=== PATIENT | male | born 1950 | race Caucasian/White ===

== ENCOUNTER → 2017-03-04 | Outpatient (CLI) | payer SELFPAY | END | disposition home or self-care (01) | LOC: LABWHC1 15:21 | PROVIDERS: ATTEND Preventive Medicine Occupational Medicine | DX: J67.9 Hypersensitivity pneumonitis due to unspecified organic dust (principal) | CPT/HCPCS: 36415 ==

== ENCOUNTER 2018-11-07 09:25 | Day surgery (SDC) | payer OTHER ==
[2018-11-07 10:13] VITALS: RESP 16; TEMP 97.1
[2018-11-07] MEDS ORDERED: LACTATED RINGERS 1,000 ML IV ONE (10:26)
[2018-11-07] MEDS ORDERED: LIDOCAINE 1% 20 ML VIAL (10MG/ML) FOR IV START INTRADERMA ONE (10:26)
[2018-11-07 10:29] LABS: Glucose,Whole Blood 106 mg/dL (75-99)
[2018-11-07] MEDS ORDERED: PROPOFOL 10 MG/ML 20 ML VIAL IV ONE (11:26)
--- NOTE | 2018-11-07 11:55 | P.PCN ---
Date of Procedure: 11/07/18 Procedure(s) Performed: Procedure: Total colonoscopy. Preoperative diagnosis: Screening for neoplasia. Postoperative diagnosis: Exam within normal limits. Preparation: HalfLytely prep. Sedation: Was provided by anesthesia. Brief clinical history: The patient is a 68-year-old male who is scheduled for this evaluation for screening for neoplasia age being his risk factor. His prior exam was around 12 years ago. The patient has no abdominal complaints, bleeding or anemia. Procedure: With the patient on his left lateral decubitus position and after informed consent and adequate sedation, the perianal area was inspected and it did not show any fissures or fistulas. There were no masses felt on digital rectal examination. The Olympus CFH 190L video colonoscope was then inserted in the rectum in the usual fashion and advanced to the cecum. The mucosa appeared healthy. No polyps or tumors were seen or any obvious diverticular disease or other pathology. I retroflexed the endoscope in the rectum before the endoscope was withdrawn. The patient tolerated the procedure well. Plan: The patient was reassured. He will follow up with you as planned and I recommended repeat exam in 10 years.
[2018-11-07 12:15] VITALS: BP 137/80; PULSE 66
== END 2018-11-07 12:36 | disposition home or self-care (01) ==
LOC: ORWHC2ENDO 09:25
DX: Z12.11 Encounter for screening for malignant neoplasm of colon (principal); E11.9 Type 2 diabetes mellitus without complications; K21.9 Gastro-esophageal reflux disease without esophagitis; I10 Essential (primary) hypertension; E78.5 Hyperlipidemia, unspecified; Z87.891 Personal history of nicotine dependence; Z79.84 Long term (current) use of oral hypoglycemic drugs; Z79.1 Long term (current) use of non-steroidal anti-inflammatories (NSAID); Z79.82 Long term (current) use of aspirin; Z79.899 Other long term (current) drug therapy
CPT/HCPCS: J2704; G0121; 45378

== ENCOUNTER 2018-12-02 09:06 | Emergency (ER) | payer MEDICARE, OTHER ==
[2018-12-02 09:11] VITALS: BP 159/77; PULSE 79; RESP 16; TEMP 98.3
--- NOTE | 2018-12-02 10:03 | ED ---
General Adult HPI - General Chief complaint: Back Pain/Injury Stated complaint: sciatic nerve Time Seen by Provider: 12/02/18 09:18 Source: patient Mode of arrival: ambulatory Limitations: no limitations - History of Present Illness Initial comments: Dictation was produced using [employer] dictation software. please excuse any grammatical, word or spelling errors. Chief Complaint: 68-year-old male presents with lower back pain. History of Present Illness: Patient is 68-year-old male. He presents today with subacute back pain. Patient states he was shoveling snow when he began having symptoms. Reports that this incident was approximately 3 weeks ago. Since then he's been seeing a chiropractor. He states that his symptoms have been stable however have not been improving. Reports today with his significant other for further care. Patient states that he came today because he is sick of his symptoms being persistent without much improvement. Patient is ambulatory. Patient does state however that his symptoms do keep him up at night on certain occasions. Patient also complains of some mild paresthesias to his right lower extremity. He has any fever, chills or night sweats. No incontinence to urine or stool. No urinary retention. The ROS documented in this emergency department record has been reviewed and confirmed by me. Those systems with pertinent positive or negative responses have been documented in the HPI. All other systems are other negative and/or noncontributory. PHYSICAL EXAM: General Impression: Alert and oriented x3, not in acute distress HEENT: Normocephalic atraumatic, extra-ocular movements intact, pupils equal and reactive to light bilaterally, mucous membranes moist. Cardiovascular: Heart regular rate and rhythm, S1&S2 audible, no murmurs, rubs or gallops Chest: Lungs clear to auscultation bilaterally, no rhonchi, no wheeze, no rales Abdomen: Bowel sounds present, abdomen soft, non-tender, non-distended, no organomegaly Musculoskeletal: Pulses present and equal in all extremities, no peripheral edema Motor: no focal deficits noted Neurological: CN II-XII grossly intact, no focal motor or sensory deficits noted Skin: Intact with no visualized rashes Psych: Normal affect and mood ED course: 68-year-old male presents with subacute back pain. Setting event was 3 weeks ago while he was shoveling snow. Vital signs upon arrival are within acceptable limits. Patient does have some mild paresthesias to the right anterior davis. Clinical presentation is consistent with sciatica. No red flag symptoms noted on HPI or physical examination. Patient is ambulatory without complications. Patient is in no acute distress. Patient to be discharged with Medrol Dosepak, pain medications and referral to outpatient spine surgeon. - Related Data Home Medications Medication Instructions Recorded Confirmed Aspirin 81 mg PO DAILY 11/07/18 12/02/18 C,E,Zinc,Copper 11/Ivufi3u/Lut 1 cap PO DAILY 11/07/18 12/02/18 [Ocuvite Adult 50 Plus Softgel] Lisinopril-Hctz 20-25 mg 1 tablet PO DAILY 11/07/18 12/02/18 [Zestoretic 20-25] Meloxicam [Mobic] 7.5 mg PO DAILY 11/07/18 12/02/18 Pantoprazole [Protonix] 40 mg PO DAILY 11/07/18 12/02/18 Simvastatin 40 mg PO DAILY 11/07/18 12/02/18 metFORMIN HCL [Glucophage] 500 mg PO DAILY 11/07/18 12/02/18 Previous Rx's Medication Instructions Recorded HYDROcodone/APAP 5-325MG [Keene 1 tab PO Q6HR PRN 3 Days #12 tab 12/02/18 5-325] methylPREDNISolone [Medrol Dose 4 mg PO DIRECTED #1 pack 12/02/18 Pack] Allergies Allergy/AdvReac Type Severity Reaction Status Date / Time No Known Drug Allergies Allergy Unknown Verified 12/02/18 09:49 Review of Systems ROS Statement: Those systems with pertinent positive or pertinent negative responses have been documented in the HPI. ROS Other: All systems not noted in ROS Statement are negative. Past Medical History Past Medical History: Diabetes Mellitus, GERD/Reflux, Hyperlipidemia, Hypertension History of Any Multi-Drug Resistant Organisms: None Reported Past Surgical History: Prostate Surgery, Tonsillectomy Past Anesthesia/Blood Transfusion Reactions: No Reported Reaction Past Psychological History: No Psychological Hx Reported Smoking Status: Former smoker Past Alcohol Use History: None Reported Past Drug Use History: None Reported General Exam Limitations: no limitations Course Vital Signs 12/02/18 09:08 Temperature 98.3 F Pulse Rate 79 Respiratory 16 Rate Blood Pressure 159/77 O2 Sat by Pulse 97 Oximetry Disposition Clinical Impression: Back pain Disposition: HOME SELF-CARE Condition: Good Instructions (If sedation given, give patient instructions): Chronic Back Pain (ED), Acute Low Back Pain (ED) Prescriptions: methylPREDNISolone [Medrol Dose Pack] 4 mg PO DIRECTED #1 pack HYDROcodone/APAP 5-325MG [Keene 5-325] 1 tab PO Q6HR PRN 3 Days #12 tab PRN Reason: Severe Pain Is patient prescribed a controlled substance at d/c from ED?: Yes If prescribed controlled substance>3 days was MAPS reviewed?: Prescribed <3 Days Referrals: Michael Gardner DO [Doctor of Osteopathic Medicine] - 1-2 days [facility],Clinic [Primary Care Provider] - 1-2 days Time of Disposition: 10:03
== END 2018-12-02 10:05 | disposition home or self-care (01) ==
LOC: EC 09:06
DX: M54.5 Low back pain (principal); R20.2 Paresthesia of skin; E11.9 Type 2 diabetes mellitus without complications; K21.9 Gastro-esophageal reflux disease without esophagitis; E78.5 Hyperlipidemia, unspecified; I10 Essential (primary) hypertension; Z87.891 Personal history of nicotine dependence; Z79.82 Long term (current) use of aspirin; Z79.1 Long term (current) use of non-steroidal anti-inflammatories (NSAID); Z79.84 Long term (current) use of oral hypoglycemic drugs; Z79.899 Other long term (current) drug therapy
CPT/HCPCS: 99283

== ENCOUNTER 2021-08-23 13:36 | Emergency (ER) | payer MEDICARE ==
[2021-08-23 13:51] VITALS: RESP 18; TEMP 98.6
[2021-08-23] MEDS ORDERED: SODIUM CHLORIDE 0.9% 1,000 ML IV ONE (16:10)
--- NOTE | 2021-08-23 16:10 | ED ---
Weakness HPI - General Chief complaint: Weakness Stated complaint: Covid+, poss pneumonia Time Seen by Provider: 08/23/21 15:58 Source: patient Mode of arrival: ambulatory - History of Present Illness Initial comments: René is a pleasant 71yo M who presents to the ER today via private vehicle for evaluation of possible dehydration. Patient tested positive for COVID on 08/13. He reports minimal respiratory symptoms but states that he has had decreased PO intake, nausea and vomiting. He is concerned he may be dehydrated and was advised by his PCP to come to the ER for evaluation. - Related Data Home Medications Medication Instructions Recorded Confirmed C,E,Zinc,Copper 11/Fvppg2n/Lut 1 cap PO DAILY 11/07/18 08/23/21 [Ocuvite Adult 50 Plus Softgel] Lisinopril-Hctz 20-25 mg 1 tab PO DAILY 11/07/18 08/23/21 [Zestoretic 20-25] Meloxicam [Mobic] 7.5 mg PO DAILY 11/07/18 08/23/21 Pantoprazole [Protonix] 40 mg PO DAILY 11/07/18 08/23/21 Simvastatin 40 mg PO DAILY 11/07/18 08/23/21 metFORMIN HCL [Glucophage] 500 mg PO DAILY 11/07/18 08/23/21 Aspirin EC [Ecotrin Low Dose] 81 mg PO DAILY 08/23/21 08/23/21 Benzonatate [Benzonatate Perle] 200 mg PO TID PRN 08/23/21 08/23/21 Carboxymethylcellulose Sodium 1 drop BOTH EYES TID 08/23/21 08/23/21 [Refresh Tears] Previous Rx's Medication Instructions Recorded Ondansetron [Zofran ODT] 4 mg PO Q8HR #12 tab 08/23/21 Allergies Allergy/AdvReac Type Severity Reaction Status Date / Time No Known Drug Allergies Allergy Unknown Verified 08/23/21 17:10 Review of Systems ROS Statement: Those systems with pertinent positive or pertinent negative responses have been documented in the HPI. ROS Other: All systems not noted in ROS Statement are negative. Past Medical History Past Medical History: Diabetes Mellitus, GERD/Reflux, Hyperlipidemia, Hypertension History of Any Multi-Drug Resistant Organisms: None Reported Past Surgical History: Prostate Surgery, Tonsillectomy Past Anesthesia/Blood Transfusion Reactions: No Reported Reaction Past Psychological History: No Psychological Hx Reported Smoking Status: Former smoker Past Alcohol Use History: None Reported Past Drug Use History: None Reported General Exam - General Exam Comments Initial Comments: Physical Exam GENERAL: Patient is well-developed and well-nourished. Patient is nontoxic and well-hydrated and is in no distress. HENT: Normocephalic, Atraumatic. EYES: PERRL, EOMI PULMONARY: Unlabored respirations. CARDIOVASCULAR: RRR Warm and well perfused extremities ABDOMEN: Non-distended SKIN: No rashes or bruising : Deferred NEUROLOGIC: Alert and oriented Normal speech Normal gait MUSCULOSKELETAL: Moving all extremities with no apparent injury PSYCHIATRIC: No SI/HI Course Vital Signs 08/23/21 13:46 Temperature 98.6 F Pulse Rate 81 Respiratory 18 Rate Blood Pressure 128/75 O2 Sat by Pulse 93 L Oximetry Medical Decision Making - Medical Decision Making Patient was seen and evaluated, history is obtained from the patient, pleasant 71-year-old gentleman with COVID-19 nausea vomiting decreased oral intake. On exam the patient's very well-appearing he is afebrile, heart rate is not elevated, oxygen is 93% on room air. He has no complaints of shortness of breath. Labs are unremarkable patient received IV fluids. Patient will be dis charged home with [employer]. - Lab Data Result diagrams: 08/23/21 17:25 08/23/21 17:25 Lab Results 08/23/21 08/23/21 Range/Units 17:25 17:25 WBC 6.6 (3.8-10.6) k/uL RBC 4.36 (4.30-5.90) m/uL Hgb 13.5 (13.0-17.5) gm/dL Hct 40.2 (39.0-53.0) % MCV 92.1 (80.0-100.0) fL MCH 30.9 (25.0-35.0) pg MCHC 33.5 (31.0-37.0) g/dL RDW 12.3 (11.5-15.5) % Plt Count 232 (150-450) k/uL MPV 9.5 Neutrophils % 82 % Lymphocytes % 9 % Monocytes % 7 % Eosinophils % 0 % Basophils % 0 % Neutrophils # 5.4 (1.3-7.7) k/uL Lymphocytes # 0.6 L (1.0-4.8) k/uL Monocytes # 0.5 (0-1.0) k/uL Eosinophils # 0.0 (0-0.7) k/uL Basophils # 0.0 (0-0.2) k/uL Sodium 137 (137-145) mmol/L Potassium 4.1 (3.5-5.1) mmol/L Chloride 99 (98-107) mmol/L Carbon Dioxide 30 (22-30) mmol/L Anion Gap 8 mmol/L BUN 41 H (9-20) mg/dL Creatinine 1.12 (0.66-1.25) mg/dL Est GFR (CKD-EPI)AfAm 77 (>60 ml/min/1.73 sqM) Est GFR (CKD-EPI)NonAf 66 (>60 ml/min/1.73 sqM) Glucose 145 H (74-99) mg/dL Calcium 8.9 (8.4-10.2) mg/dL Magnesium 1.9 (1.6-2.3) mg/dL Total Bilirubin 0.8 (0.2-1.3) mg/dL AST 46 (17-59) U/L ALT 45 (4-49) U/L Alkaline Phosphatase 100 (38-126) U/L Total Protein 6.7 (6.3-8.2) g/dL Albumin 3.6 (3.5-5.0) g/dL Disposition Clinical Impression: COVID-19 Disposition: HOME SELF-CARE Condition: Stable Is patient prescribed a controlled substance at d/c from ED?: No Referrals: [facility],Clinic [Primary Care Provider] - 1-2 days
--- NOTE | 2021-08-23 16:48 | XR ---
EXAMINATION TYPE: XR chest 1V DATE OF EXAM: 08/23/2021 COMPARISON: NONE HISTORY: Weakness TECHNIQUE: Single view FINDINGS: There is some mild interstitial infiltrate in the lower lung [place]. Heart size is normal. There is no heart failure. Bony thorax is intact IMPRESSION: There is some interstitial pneumonia.
[2021-08-23 17:47] LABS: Basophils % (A) 0 %; Eosinophils % (A) 0 %; HCT 40.2 % (39.0-53.0); HGB 13.5 gm/dL (13.0-17.5); Lymphocytes # (A) 0.6 k/uL (1.0-4.8); Lymphocytes % (A) 9 %; MCH 30.9 pg (25.0-35.0); MCHC 33.5 g/dL (31.0-37.0); MCV 92.1 fL (80.0-100.0); Mean Platelet Volume 9.5; Monocytes # (A) 0.5 k/uL (0-1.0); Monocytes % (A) 7 %; Neutrophils # (A) 5.4 k/uL (1.3-7.7); Neutrophils % (A) 82 %; Platelet Count 232 k/uL (150-450); RBC 4.36 m/uL (4.30-5.90); RDW 12.3 % (11.5-15.5); WBC 6.6 k/uL (3.8-10.6)
[2021-08-23 17:48] LABS: Albumin 3.6 g/dL (3.5-5.0); Calcium 8.9 mg/dL (8.4-10.2); Magnesium 1.9 mg/dL (1.6-2.3); Potassium 4.1 mmol/L (3.5-5.1); Total Bilirubin 0.8 mg/dL (0.2-1.3); Total Protein 6.7 g/dL (6.3-8.2)
[2021-08-23 19:12] VITALS: BP 132/72; PULSE 84
== END 2021-08-23 19:11 | disposition home or self-care (01) ==
LOC: EC 13:36
DX: U07.1 COVID-19 (principal); E11.9 Type 2 diabetes mellitus without complications; I10 Essential (primary) hypertension; E78.5 Hyperlipidemia, unspecified; K21.9 Gastro-esophageal reflux disease without esophagitis; Z87.891 Personal history of nicotine dependence; Z79.82 Long term (current) use of aspirin; Z79.84 Long term (current) use of oral hypoglycemic drugs; Z79.1 Long term (current) use of non-steroidal anti-inflammatories (NSAID); Z79.899 Other long term (current) drug therapy
CPT/HCPCS: 36415; 71045; 80053; 83735; 85025; 99284

== ENCOUNTER 2022-04-25 21:40 | Emergency (ER) | payer MEDICARE ==
--- NOTE | 2022-04-25 22:29 | ED ---
Extremity Problem HPI - General Chief complaint: Extremity Problem,Nontraumatic Stated complaint: R arm sore Time Seen by Provider: 04/25/22 21:52 Source: patient, family, RN notes reviewed Mode of arrival: ambulatory Limitations: no limitations - History of Present Illness Initial comments: Patient is a 72-year-old male presents to the emergency room with complaint of redness at the site of a pneumonia shot earlier in the week that has slowly moved down into the lateral aspect of his arm with some mild swelling mild erythema near and warmth. The area is not indurated and warm rather than hot. No purulent drainage from injection site. He denies any fevers, chills, chest pain, shortness of breath, range of motion impairment, limb numbness or tingling. - Related Data Home Medications Medication Instructions Recorded Confirmed C,E,Zinc,Copper 11/Foggu2v/Lut 1 cap PO DAILY 11/07/18 08/23/21 [Ocuvite Adult 50 Plus Softgel] Lisinopril-Hctz 20-25 mg 1 tab PO DAILY 11/07/18 08/23/21 [Zestoretic 20-25] Meloxicam [Mobic] 7.5 mg PO DAILY 11/07/18 08/23/21 Pantoprazole [Protonix] 40 mg PO DAILY 11/07/18 08/23/21 Simvastatin 40 mg PO DAILY 11/07/18 08/23/21 metFORMIN HCL [Glucophage] 500 mg PO DAILY 11/07/18 08/23/21 Aspirin EC [Ecotrin Low Dose] 81 mg PO DAILY 08/23/21 08/23/21 Benzonatate [Benzonatate Perle] 200 mg PO TID PRN 08/23/21 08/23/21 Carboxymethylcellulose Sodium 1 drop BOTH EYES TID 08/23/21 08/23/21 [Refresh Tears] Previous Rx's Medication Instructions Recorded Ondansetron [Zofran ODT] 4 mg PO Q8HR #12 tab 08/23/21 methylPREDNISolone Dose Pack 4 mg PO DIRECTED #21 tab 04/25/22 [Medrol Dose Pack] Allergies Allergy/AdvReac Type Severity Reaction Status Date / Time No Known Drug Allergies Allergy Unknown Verified 04/25/22 21:43 Review of Systems ROS Statement: Those systems with pertinent positive or pertinent negative responses have been documented in the HPI. ROS Other: All systems not noted in ROS Statement are negative. Past Medical History Past Medical History: Diabetes Mellitus, GERD/Reflux, Hyperlipidemia, Hypertension History of Any Multi-Drug Resistant Organisms: None Reported Past Surgical History: Prostate Surgery, Tonsillectomy Past Anesthesia/Blood Transfusion Reactions: No Reported Reaction Past Psychological History: No Psychological Hx Reported Smoking Status: Former smoker Past Alcohol Use History: None Reported Past Drug Use History: None Reported General Exam Limitations: no limitations General appearance: alert, in no apparent distress Head exam: Present: atraumatic, normocephalic, normal inspection Eye exam: Present: normal appearance, PERRL, EOMI. Absent: scleral icterus, conjunctival injection, periorbital swelling ENT exam: Present: normal exam, mucous membranes moist Neck exam: Present: normal inspection Respiratory exam: Absent: respiratory distress, accessory muscle use Right Upper Arm exam: Present: full ROM, swelling (trace), erythema (mild). Absent: tenderness, abrasion, laceration, ecchymosis, crepidus Back exam: Present: normal inspection Neurological exam: Present: alert, oriented X3, CN II-XII intact Psychiatric exam: Present: normal affect, normal mood Skin exam: Present: dry, intact Course Vital Signs 04/25/22 21:41 Temperature 97.9 F Pulse Rate 71 Respiratory 17 Rate Blood Pressure 155/82 O2 Sat by Pulse 98 Oximetry Medical Decision Making - Medical Decision Making Given mild redness distal to injection site high probability for reaction however with mild swelling localized near the brachial vessels will check ultrasound to rule out DVT. No induration. Mottled erythema with some warmth. Injection site without any drainage induration tenderness erythremia or swelling. No indication for laboratory studies at this time. Doppler negative for DVT. Case discussed in depth with Dr. Tuttle who concurs with ALLERGIC/adverse reaction to pneumonia vaccine. Will give IM Solu-Medrol placed on a Medrol Dosepak advised avoidance of further pneumonia vaccine. Return parameters to the emergency room including any shortness of breath, worsening of redness or fevers, chills, or lethargy. Disposition Clinical Impression: Adverse reaction to pneumococcal vaccine Disposition: HOME SELF-CARE Condition: Stable Instructions (If sedation given, give patient instructions): Adverse Drug Reaction (ED) Additional Instructions: Please complete course of Medrol Dosepak. Return to the emergency room if any worsening of redness, shortness of breath fevers or other adverse reaction symptoms. If itching occurs mainly utilize Benadryl or other [id number] antihistamine such as Zyrtec. Please follow-up with your primary care provider. Please return to the Emergency Department if symptoms worsen or any other concerns. Prescriptions: methylPREDNISolone Dose Pack [Medrol Dose Pack] 4 mg PO DIRECTED #21 tab Is patient prescribed a controlled substance at d/c from ED?: No Referrals: [facility],Clinic [Primary Care Provider] - 1-2 days Time of Disposition: 23:15
--- NOTE | 2022-04-25 22:49 | US ---
EXAMINATION TYPE: US venous doppler duplex UE RT DATE OF EXAM: 04/25/2022 COMPARISON: NONE CLINICAL HISTORY: swelling redness. redness after pneumonia shot in right arm 3 days prior, no h/o dv t SIDE PERFORMED: Right Right Arm: Negative for DVT IMPRESSION: No evidence of deep vein thrombosis in the right arm.
[2022-04-25] MEDS ORDERED: methylPREDNISolone SOD SUCCI 125 MG/2 ML VIAL IM ONE (23:11)
[2022-04-25 23:22] VITALS: BP 152/71; PULSE 59; RESP 18; TEMP 97.8
== END 2022-04-25 23:24 | disposition home or self-care (01) ==
LOC: EC 21:40
DX: M79.89 Other specified soft tissue disorders (principal); M79.601 Pain in right arm; T88.1XXA Other complications following immunization, not elsewhere classified, initial encounter; E11.9 Type 2 diabetes mellitus without complications; K21.9 Gastro-esophageal reflux disease without esophagitis; E78.5 Hyperlipidemia, unspecified; Z87.891 Personal history of nicotine dependence; I10 Essential (primary) hypertension; Z79.899 Other long term (current) drug therapy; Z79.82 Long term (current) use of aspirin; Z79.84 Long term (current) use of oral hypoglycemic drugs
CPT/HCPCS: 93971; 99283; 96372; J2930

== ENCOUNTER 2024-05-23 16:33 | Emergency (ER) | payer MEDICARE ==
--- NOTE | 2024-05-23 16:54 | ED ---
Syncope HPI - General Chief Complaint: Syncope Stated Complaint: Syncope Time Seen by Provider: 05/23/24 16:35 Source: patient, EMS, RN notes reviewed, old records reviewed Mode of arrival: EMS Limitations: no limitations - History of Present Illness Initial Comments: This is a 74-year-old male to the ER for evaluation of a syncopal event patient has a significant syncopal event prior to arrival the is concerned he may have passed out twice. Patient did donate plasma today this is a weekly thing that he does. Nothing new on activity, normal activity level no current headache chest pain shortness of breath or abdominal pain. Patient feels well currently MD Complaint: loss of consciousness, almost passed out, collapsed -: days(s) Prodromal Symptoms: headache, shortness of breath, diaphoresis Description of Event: post-event confusion -: second(s) Witnessed: yes - by bystander Injuries Sustained Associated with Event: None Current Symptoms: lightheaded History: previous syncopal episode - Related Data Home Medications Medication Instructions Recorded Confirmed C,E,Zinc,Copper 11/[id number]/Lut 1 cap PO DAILY 11/07/18 08/23/21 [Ocuvite Adult 50 Plus Softgel] Lisinopril-Hctz 20-25 mg 1 tab PO DAILY 11/07/18 08/23/21 [Zestoretic 20-25] Meloxicam [Mobic] 7.5 mg PO DAILY 11/07/18 08/23/21 Pantoprazole [Protonix] 40 mg PO DAILY 11/07/18 08/23/21 Simvastatin [Zocor] 40 mg PO DAILY 11/07/18 08/23/21 metFORMIN HCL [Glucophage] 500 mg PO DAILY 11/07/18 08/23/21 Aspirin EC [Ecotrin Low Dose] 81 mg PO DAILY 08/23/21 08/23/21 Benzonatate [Benzonatate Perle] 200 mg PO TID PRN 08/23/21 08/23/21 Carboxymethylcellulose Sodium 1 drop BOTH EYES TID 08/23/21 08/23/21 [Refresh Tears] Previous Rx's Medication Instructions Recorded Ondansetron [Zofran ODT] 4 mg PO Q8HR #12 tab 08/23/21 methylPREDNISolone Dose Pack 4 mg PO DIRECTED #21 tab 04/25/22 [Medrol Dose Pack] Allergies Allergy/AdvReac Type Severity Reaction Status Date / Time No Known Drug Allergies Allergy Unknown Verified 05/23/24 16:39 Review of Systems ROS Statement: Those systems with pertinent positive or pertinent negative responses have been documented in the HPI. ROS Other: All systems not noted in ROS Statement are negative. Past Medical History Past Medical History: Diabetes Mellitus, GERD/Reflux, Hyperlipidemia, Hypertension History of Any Multi-Drug Resistant Organisms: None Reported Past Surgical History: Prostate Surgery, Tonsillectomy Past Anesthesia/Blood Transfusion Reactions: No Reported Reaction Past Psychological History: No Psychological Hx Reported Smoking Status: Former smoker Past Alcohol Use History: Occasional Past Drug Use History: None Reported General Exam Limitations: no limitations General appearance: alert, in no apparent distress, anxious, in distress Head exam: Present: atraumatic, normocephalic, normal inspection Eye exam: Present: normal appearance, PERRL, EOMI. Absent: scleral icterus, conjunctival injection, periorbital swelling ENT exam: Present: normal exam, mucous membranes moist Neck exam: Present: normal inspection. Absent: tenderness, meningismus, lymphadenopathy Respiratory exam: Present: normal lung sounds bilaterally. Absent: respiratory distress, wheezes, rales, rhonchi, stridor Cardiovascular Exam: Present: regular rate, normal rhythm, normal heart sounds. Absent: systolic murmur, diastolic murmur, rubs, gallop, clicks GI/Abdominal exam: Present: soft, normal bowel sounds. Absent: distended, tenderness, guarding, rebound, rigid Extremities exam: Present: normal inspection, full ROM, normal capillary refill. Absent: tenderness, pedal edema, joint swelling, calf tenderness Back exam: Present: normal inspection Neurological exam: Present: alert, oriented X3, CN II-XII intact Psychiatric exam: Present: normal affect, normal mood Skin exam: Present: warm, dry, intact, normal color. Absent: rash Course Vital Signs 05/23/24 05/23/24 16:35 19:45 Temperature 97.5 F L 97.0 F L Pulse Rate 62 74 Respiratory 18 17 Rate Blood Pressure 117/71 118/68 O2 Sat by Pulse 95 97 Oximetry - Reevaluation(s) Reevaluation #1: 05/23/24 18:50 Medical records reviewed Reevaluation #2: 05/23/24 18:50 Patient symptoms improved with no recurrent syncope Patient is reiterating that patient does have headaches at times Reevaluation #3: 05/23/24 18:51 Patient informed of results questions answered Reevaluation #4: Was pt. sent in by a medical professional or institution (KEN Back, COBBLER APPRENTICE, urgent care, hospital, or custodial...) When possible be specific @ -no Did you speak to anyone other than the patient for history (EMS, parent, family, police, friend...)? What history was obtained from this source @ -no Did you review nursing and triage notes (agree or disagree)? Why? @ -agree Are old charts reviewed (outside hosp., previous admission, EMS record, old EKG, old radiological studies, urgent care reports/EKG's, custodial records)? Report findings @ -yes Differential Diagnosis (chest pain, altered mental status, abdominal pain women, abdominal pain men, vaginal bleeding, weakness, fever, dyspnea, syncope, headache, dizziness, GI bleed, back pain, seizure, CVA, palpatations, mental health, musculoskeletal)? @ -prior EKG interpreted by me (3pts min.). @ -yes X-rays interpreted by me (1pt min.). @ -no CT interpreted by me (1pt min.). @ -yes negative for acute disease U/S interpreted by me (1pt. min.). @ -no What testing was considered but not performed or refused? (CT, X-rays, U/S, labs)? Why? @ -none What meds were considered but not given or refused? Why? @ -none Did you discuss the management of the patient with other professionals (professionals i.e. KEN Back, COBBLER APPRENTICE, lab, RT, psych nurse, high school social science teacher, sawsmith, teacher, chief investment officer, casework specialist)? Give summary @ -no Was smoking cessation discussed for >3mins.? @ -no Was critical care preformed (if so, how long)? @ -no Were there social determinants of health that impacted care today? How? (Homelessness, low income, unemployed, alcoholism, drug addiction, transportation, low edu. Level, literacy, decrease access to med. care, usp, rehab)? @ -none Was there de-escalation of care discussed even if they declined (Discuss DNR or withdrawal of care, Hospice)? DNR status @ -no What co-morbidities impacted this encounter? (DM, HTN, Smoking, COPD, CAD, Cancer, CVA, ARF, Chemo, Hep., AIDS, mental health diagnosis, sleep apnea, morbid obesity)? @ -none Was patient admitted / discharged? Hospital course, mention meds given and route, prescriptions, significant lab abnormalities, going to OR and other pertinent info. @ - 74-year-old male who gave plasma today presents to the ER after syncopal event thinks maybe 2 syncopal events with slow to respond to consciousness after the second event. Currently awake and alert and throughout ER stay remains awake and alert without complaint of headache chest pain shortness of breath or abdominal pain. Patient can be discharged Discharge Undiagnosed new problem with uncertain prognosis? @ -no Drug Therapy requiring intensive monitoring for toxicity (Heparin, Nitro, Insulin, Cardizem)? @ -no Were any procedures done? @ -no Diagnosis/symptom? @ -Syncope Acute, or Chronic, or Acute on Chronic? @ -Acute Uncomplicated (without systemic symptoms) or Complicated (systemic symptoms)? @ -Complicated Side effects of treatment? @ -no Exacerbation, Progression, or Severe Exacerbation? @ -exacerbation Poses a threat to life or bodily function? How? (Chest pain, [place], [place], pneumonia, PE, COPD, DKA, ARF, appy, cholecystitis, CVA, Diverticulitis, Homicidal, Suicidal, threat to staff... and all critical care pts) @ -yes extremes of age Reevaluation #5: Differential Syncope: Valvular disease, hypertrophic cardiomyopathy, pulmonary embolism, tamponade, tachycardia, bradycardia, [place], hypovolemia, hemorrhage, dissection, anemia, intracranial hemorrhage, seizure, hypoglycemia, carbon monoxide poisoning, this is not meant to be an all-inclusive list. EKG Findings - EKG Comments: EKG Findings:: EKG is sinus 61 IL 186 QRS 104 QTc 423 - EKG Results: EKG: interpreted by HEATHER Medical Decision Making - Medical Decision Making 74-year-old male who gave plasma today presents to the ER after syncopal event thinks maybe 2 syncopal events with slow to respond to consciousness after the second event. Currently awake and alert and throughout ER stay remains awake and alert without complaint of headache chest pain shortness of breath or abdominal pain. Patient can be discharged - Lab Data Result diagrams: 05/23/24 17:00 05/23/24 17:00 Lab Results 05/23/24 05/23/24 05/23/24 Range/Units 17:00 17:00 17:00 WBC 6.7 (3.8-10.6) k/uL RBC 4.15 L (4.30-5.90) m/uL Hgb 13.1 (13.0-17.5) gm/dL Hct 40.3 (39.0-53.0) % MCV 97.2 (80.0-100.0) fL MCH 31.5 (25.0-35.0) pg MCHC 32.4 (31.0-37.0) g/dL RDW 12.8 (11.5-15.5) % Plt Count 184 (150-450) k/uL MPV 9.9 Neutrophils % 73 % Lymphocytes % 17 % Monocytes % 5 % Eosinophils % 4 % Basophils % 0 % Neutrophils # 4.8 (1.3-7.7) k/uL Lymphocytes # 1.1 (1.0-4.8) k/uL Monocytes # 0.3 (0-1.0) k/uL Eosinophils # 0.2 (0-0.7) k/uL Basophils # 0.0 (0-0.2) k/uL PT 11.1 (10.0-12.5) sec INR 1.0 (<1.2) APTT 21.4 L (22.0-30.0) sec D-Dimer (<0.60) mg/L FEU Sodium 140 (137-145) mmol/L Potassium 4.1 (3.5-5.1) mmol/L Chloride 98 (98-107) mmol/L Carbon Dioxide 25 (22-30) mmol/L Anion Gap 17 mmol/L BUN 29 H (9-20) mg/dL Creatinine 1.05 (0.66-1.25) mg/dL Est GFR (CKD-EPI)AfAm 82 (>60 ml/min/1.73 sqM) Est GFR (CKD-EPI)NonAf 71 (>60 ml/min/1.73 sqM) Glucose 125 H (74-99) mg/dL Calcium 9.2 (8.4-10.2) mg/dL Magnesium (1.6-2.3) mg/dL Total Bilirubin 0.5 (0.2-1.3) mg/dL AST 21 (17-59) U/L ALT 14 (4-49) U/L Alkaline Phosphatase 81 (38-126) U/L Troponin I (0.000-0.034) ng/mL Total Protein 5.5 L (6.3-8.2) g/dL Albumin 3.6 (3.5-5.0) g/dL 05/23/24 05/23/24 05/23/24 Range/Units 17:00 17:00 18:24 WBC (3.8-10.6) k/uL RBC (4.30-5.90) m/uL Hgb (13.0-17.5) gm/dL Hct (39.0-53.0) % MCV (80.0-100.0) fL MCH (25.0-35.0) pg MCHC (31.0-37.0) g/dL RDW (11.5-15.5) % Plt Count (150-450) k/uL MPV Neutrophils % % Lymphocytes % % Monocytes % % Eosinophils % % Basophils % % Neutrophils # (1.3-7.7) k/uL Lymphocytes # (1.0-4.8) k/uL Monocytes # (0-1.0) k/uL Eosinophils # (0-0.7) k/uL Basophils # (0-0.2) k/uL PT (10.0-12.5) sec INR (<1.2) APTT (22.0-30.0) sec D-Dimer 0.20 (<0.60) mg/L FEU Sodium (137-145) mmol/L Potassium (3.5-5.1) mmol/L Chloride (98-107) mmol/L Carbon Dioxide (22-30) mmol/L Anion Gap mmol/L BUN (9-20) mg/dL Creatinine (0.66-1.25) mg/dL Est GFR (CKD-EPI)AfAm (>60 ml/min/1.73 sqM) Est GFR (CKD-EPI)NonAf (>60 ml/min/1.73 sqM) Glucose (74-99) mg/dL Calcium (8.4-10.2) mg/dL Magnesium 1.6 (1.6-2.3) mg/dL Total Bilirubin (0.2-1.3) mg/dL AST (17-59) U/L ALT (4-49) U/L Alkaline Phosphatase (38-126) U/L Troponin I <0.012 (0.000-0.034) ng/mL Total Protein (6.3-8.2) g/dL Albumin (3.5-5.0) g/dL - Radiology Data Radiology results: report reviewed (CT brain is negative for acute disease), image reviewed Disposition Clinical Impression: Vasovagal syncope Disposition: HOME SELF-CARE Condition: Fair Instructions (If sedation given, give patient instructions): Syncope (ED) Is patient prescribed a controlled substance at d/c from ED?: No Referrals: [facility],Clinic [Primary Care Provider] - 1-2 days Time of Disposition: 18:30
[2024-05-23 17:33] LABS: Basophils % (A) 0 %; Eosinophils # (A) 0.2 k/uL (0-0.7); Eosinophils % (A) 4 %; HCT 40.3 % (39.0-53.0); HGB 13.1 gm/dL (13.0-17.5); Lymphocytes # (A) 1.1 k/uL (1.0-4.8); Lymphocytes % (A) 17 %; MCH 31.5 pg (25.0-35.0); MCHC 32.4 g/dL (31.0-37.0); MCV 97.2 fL (80.0-100.0); Mean Platelet Volume 9.9; Monocytes # (A) 0.3 k/uL (0-1.0); Monocytes % (A) 5 %; Neutrophils # (A) 4.8 k/uL (1.3-7.7); Neutrophils % (A) 73 %; Platelet Count 184 k/uL (150-450); RBC 4.15 m/uL (4.30-5.90); RDW 12.8 % (11.5-15.5); WBC 6.7 k/uL (3.8-10.6)
[2024-05-23 17:58] LABS: Partial Thromboplastin Time 21.4 sec (22.0-30.0); Prothrombin Time 11.1 sec (10.0-12.5)
--- NOTE | 2024-05-23 18:18 | CT ---
EXAMINATION TYPE: CT brain wo con DATE OF EXAM: 05/23/2024 COMPARISON: INDICATION: Passed out, syncope DLP: 1181.4 mGycm, Automated exposure control for dose reduction was used. CONTRAST: None CT of the brain is performed utilizing 3 mm thick sections through the posterior fossa and 3 mm thick sections through the remaining calvarium. Study is performed within 24 hours of arrival to the hosp ital. No abnormal hyperdensity is present to suggest an acute intracranial hemorrhage. No mass lesion is evident. No acute infarcts are evident. Ventricles and sulci are appropriate for the patient age. Paranasal sinuses and mastoid air cells within the [id number] are clear. Left septal deviation is noted IMPRESSION: 1. No acute intracranial process. Follow up MRI can be performed as clinically indicated.
[2024-05-23] MEDS: SODIUM CHLORIDE 0.9% 1,000 ML IV STA (18:20)
[2024-05-23 18:24] LABS: ALT 14 U/L (4-49); AST 21 U/L (17-59); African American GFR (CKD) 82 (>60 ml/min/1.73 sqM); Albumin 3.6 g/dL (3.5-5.0); Alkaline Phosphatase 81 U/L (38-126); Anion Gap 17 mmol/L; Blood Urea Nitrogen 29 mg/dL (9-20); Calcium 9.2 mg/dL (8.4-10.2); Carbon Dioxide 25 mmol/L (22-30); Chloride 98 mmol/L (98-107); Glucose 125 mg/dL (74-99); Non-African American GFR(CKD) 71 (>60 ml/min/1.73 sqM); Potassium 4.1 mmol/L (3.5-5.1); Sodium 140 mmol/L (137-145); Total Bilirubin 0.5 mg/dL (0.2-1.3); Total Protein 5.5 g/dL (6.3-8.2)
[2024-05-23 20:06] VITALS: BP 118/68; PULSE 74; RESP 17; TEMP 97
== END 2024-05-23 20:05 | disposition home or self-care (01) ==
LOC: EC 16:33
DX: R55 Syncope and collapse
CPT/HCPCS: 36415; 70450; 80053; 83735; 84484; 85025; 85379; 85610; 85730; 93005; 96360; 99284